=== PATIENT | female | born 1970 | race Hispanic/Latino ===

== ENCOUNTER 2018-08-10 13:45 | Emergency (ER) | payer MEDICARE ==
[2018-08-10 14:18] LABS: BILIRUBIN,URINE Negative (NEGATIVE); COLOR,URINE Yellow (YELLOW); GLUCOSE, URINE (UA) Negative (NEGATIVE); KETONES,URINE Negative (NEGATIVE); LEUKOCYTE ESTERASE ,URINE Negative (NEGATIVE); NITRATE,URINE Negative (NEGATIVE); OCCULT BLOOD,URINE Negative (NEGATIVE); PROTEIN,URINE Negative (NEGATIVE); UROBILINOGEN,URINE 0.2 mg/dL (0.2-1.0)
[2018-08-10 14:22] LABS: APPEARANCE,URINE CLEAR (CLEAR)
[2018-08-10 15:37] LABS: BASOPHILS % (AUTO) 0.5 % (0.0-5.0); EOSINOPHILS % (AUTO) 2.5 % (0.0-8.0); HEMATOCRIT 44.6 % (36-48); LYMPHOCYTES % (AUTO) 26.1 % (21.0-51.0); MEAN CORPUSCULAR HEMOGLOBIN 30.8 pg (27.0-33.0); MEAN CORPUSCULAR HGB CONC 33.3 g/dL (32.0-36.0); MEAN CORPUSCULAR VOLUME 92.4 fL (79-99); MONOCYTES % (AUTO) 7.7 % (3.0-13.0); NEUTROPHILS % (AUTO) 63.2 % (40.0-77.0); NUCLEATED RED BLOOD CELLS 0.1 % (0.0-0.19); PLATELET COUNT (AUTO) 312 K/uL (130-400); RED BLOOD CELL COUNT(AUTO) 4.82 MIL/uL (4.00-5.50); RED CELL DISTRIBUTION WIDTH 12.9 % (11.0-15.5); WHITE BLOOD COUNT (AUTO) 6.7 K/uL (4.8-10.8)
[2018-08-10 15:49] LABS: CREATININE 0.8 mg/dL (0.5-1.5); POTASSIUM 3.8 mmol/L (3.5-5.1)
[2018-08-10 15:54] LABS: BILIRUBIN,TOTAL 0.5 mg/dL (0.2-1.0); TOTAL PROTEIN, SERUM 8.7 g/dL (6.0-8.3)
[2018-08-10] MEDS ORDERED: ACETAMINOPHEN EXTRA STRENGTH 500 MG TABLET ONE (16:03)
== END 2018-08-10 17:07 | disposition home or self-care (01) ==
LOC: EDH 13:45
DX: F41.9 Anxiety disorder, unspecified (principal); F45.8 Other somatoform disorders; E78.5 Hyperlipidemia, unspecified; Z90.710 Acquired absence of both cervix and uterus
CPT/HCPCS: 36415; 80053; 81003; 85025; 93005

== ENCOUNTER → 2023-03-21 | Outpatient (CLI) | payer MEDICARE | END | disposition home or self-care (01) | LOC: SHCH 12:51 | PROVIDERS: ATTEND Internal Medicine Cardiovascular Disease | DX: I87.2 Venous insufficiency (chronic) (peripheral) (principal); I73.9 Peripheral vascular disease, unspecified | CPT/HCPCS: 93925; 93970 ==

== ENCOUNTER → 2023-07-05 | Outpatient (CLI) | payer MEDICARE ==
[2023-07-05 12:21] LABS: BASOPHILS # (AUTO) 0.05 K/uL (0.00-0.20); BASOPHILS % (AUTO) 0.8 % (0.0-5.0); EOSINOPHILS # (AUTO) 0.27 K/uL (0.00-0.70); EOSINOPHILS % (AUTO) 4.3 % (0.0-8.0); HEMATOCRIT 42.6 % (36-48); IMMATURE GRANULOCYTE ABSOLUTE 0.02 K/uL (0-1); LYMPHOCYTES # (AUTO) 2.1 K/uL (1.0-4.8); LYMPHOCYTES % (AUTO) 33.9 % (21.0-51.0); MEAN CORPUSCULAR HEMOGLOBIN 31.1 pg (27.0-33.0); MEAN CORPUSCULAR HGB CONC 32.4 g/dL (32.0-36.0); MEAN CORPUSCULAR VOLUME 95.9 fL (79-99); MONOCYTES # (AUTO) 0.6 K/uL (0.1-1.0); MONOCYTES % (AUTO) 8.8 % (3.0-13.0); NEUTROPHILS # (AUTO) 3.2 K/uL (1.8-7.7); NEUTROPHILS % (AUTO) 51.9 % (40.0-77.0); PLATELET COUNT (AUTO) 369 K/uL (130-400); RED BLOOD CELL COUNT(AUTO) 4.44 MIL/uL (4.00-5.50); RED CELL DISTRIBUTION WIDTH 12.7 % (11.0-15.5); WHITE BLOOD COUNT (AUTO) 6.2 K/uL (4.8-10.8)
[2023-07-05 12:33] LABS: CREATININE 0.7 mg/dL (0.5-1.5); POTASSIUM 4.1 mmol/L (3.5-5.1)
[2023-07-05 12:34] LABS: INR < 0.93 (0.85-1.15); PROTHROMBIN TIME 10.3 SEC (9.6-11.6)
[2023-07-05 12:35] LABS: PARTIAL THROMBOPLASTIN TIME 29.6 SEC (26.3-35.5)
== END | disposition home or self-care (01) ==
LOC: LAB 08:09
PROVIDERS: ATTEND Internal Medicine Cardiovascular Disease
DX: I87.1 Compression of vein (principal); I87.2 Venous insufficiency (chronic) (peripheral); I83.93 Asymptomatic varicose veins of bilateral lower extremities; I73.9 Peripheral vascular disease, unspecified; E78.5 Hyperlipidemia, unspecified; M06.9 Rheumatoid arthritis, unspecified; E66.9 Obesity, unspecified; Z68.32 Body mass index [BMI] 32.0-32.9, adult; M79.673 Pain in unspecified foot
CPT/HCPCS: 36415; 80048; 85025; 85610; 85730

== ENCOUNTER → 2024-06-17 | Outpatient (CLI) | payer MEDICARE | END | disposition home or self-care (01) | LOC: SHCH 10:53 | PROVIDERS: ATTEND Internal Medicine Cardiovascular Disease | DX: I87.2 Venous insufficiency (chronic) (peripheral) (principal) | CPT/HCPCS: 93970 ==

== ENCOUNTER 2025-03-01 05:22 | Emergency (ER) | payer MEDICARE ==
[~2025-03-01] VITALS: Ht 157.5 cm; Wt 79.8 kg
[2025-03-01 05:44] LABS: APPEARANCE,URINE CLEAR (CLEAR); GLUCOSE, URINE (UA) NEGATIVE (NEGATIVE); LEUKOCYTE ESTERASE ,URINE NEGATIVE Leu/uL (NEGATIVE); NITRATE,URINE NEGATIVE (NEGATIVE); OCCULT BLOOD,URINE NEGATIVE (NEGATIVE)
[2025-03-01 05:47] LABS: ADD UA MICROSCOPIC NO
--- NOTE | 2025-03-01 06:25 | ERN ---
General Chief Complaint: Headache Stated Complaint: HEADACHE Time Seen by MD: 05:48 History of Present Illness Initial Comments Mrs Panda is a 55-year-old female who comes in today with a three-week history of a headache. Patient reports that she has right-sided parietal/temporal headache the resident her neck. Patient reports that she has been taking muscle relaxers from her primary care doctor but this is not help. Patient reports that the pain has gotten so bad that she needed assistance Allergies: Coded Allergies: No Known Allergies (Unverified Allergy, Unknown, 03/01/25) Past Medical History Past Medical History: Arthritis, Diabetes-Type II, High Cholesterol Past Surgical History: Hysterectomy, Cholecystectomy, Other, Surgical History Other: HERNIA ROS Dictation Constitutional: Negative for fever,chills, and weight loss Eyes: Negative for injury, pain,redness, and discharge ENT: Positive for neck pain Cardiovascular: Negative for chest pain, palpitations, and edema Respiratory: Negative for shortness of breath, cough, and wheezing, Abdomen/GI: Negative for abdominal pain, nausea, vomiting, diarrhea, and constipation Back: Negative for injury and pain : Negative for injury, bleeding and discharge MS/Extremity: Negative for injury and deformity Skin: Negative for rash, and discoloration Neuro: Headache Psych: Negative for suicide ideation, homicidal ideation, and hallucinations Physical Exam Physical Exam Dictation General: awake, alert, NAD Head/Face: Normocephalic, atraumatic Eyes: PERRL, EOMI, vision at baseline ENT: oral cavity clear, TMs clear, no signs of infection Neck: Trachea midline, supple, no nuchal rigidity Cardiovascular: RRR, normal S1/S2, No MRGs, no JVD Respiratory: CTAB, no respiratory distress, No rales or wheezes Abdomen: Soft, non-tender, non-distended, normal bowel sounds, no guarding or rebound. Skin: Warm, dry, normal turgor, no rash MS/Extremity: Pulses equal, no cyanosis, neurovascular intact, FROM Neuro: COAx4, GCS 15, strength 5/5, CN 2-12 intact, normal cerebellar exam, normal gait, Psych: Normal behavior, mood, and affect normal Results Laboratory and Microbiology Lab and Micro Result Laboratory Tests Test 03/01/25 05:25 03/01/25 06:02 03/01/25 06:41 Urine Color LIGHT-YELLOW (YELLOW) Urine Appearance CLEAR (CLEAR) Urine pH 6.5 (5.0-8.0) Urine Specific [place] 1.017 (1.001-1.031) Urine Protein NEGATIVE mg/dL (NEGATIVE) Urine Glucose (UA) NEGATIVE mg/dL (NEGATIVE) Urine Ketones NEGATIVE mg/dL (NEGATIVE) Urine Occult Blood NEGATIVE (NEGATIVE) Urine Nitrate NEGATIVE (NEGATIVE) Urine Bilirubin NEGATIVE mg/dL (NEGATIVE) Urine Urobilinogen 0.2 mg/dL (0.2-1.0) Urine Leukocyte Esterase NEGATIVE Manny/uL Whole Blood Glucose 129 MG/DL (70-110) H White Blood Count 5.7 K/uL (4.8-10.8) Red Blood Count 4.44 MIL/uL (4.00-5.50) Hemoglobin 14.0 g/dL (12.0-16.0) Hematocrit 41.2 % (36-48) Mean Corpuscular Volume 92.8 fL (79-99) Mean Corpuscular Hemoglobin 31.5 pg (27.0-33.0) Mean Corpuscular Hemoglobin Concent 34.0 g/dL (32.0-36.0) Red Cell Distribution Width 12.4 % (11.0-15.5) Platelet Count 269 K/uL (130-400) Mean Platelet Volume 8.7 fL (7.5-10.5) Immature Granulocyte % (Auto) 0.2 % (0-1) Neutrophils (%) (Auto) 54.5 % (40.0-77.0) Lymphocytes (%) (Auto) 33.7 % (21.0-51.0) Monocytes (%) (Auto) 7.6 % (3.0-13.0) Eosinophils (%) (Auto) 3.5 % (0.0-8.0) Basophils (%) (Auto) 0.5 % (0.0-5.0) Neutrophils # (Auto) 3.1 K/uL (1.8-7.7) Lymphocytes # (Auto) 1.9 K/uL (1.0-4.8) Monocytes # (Auto) 0.4 K/uL (0.1-1.0) Eosinophils # (Auto) 0.20 K/uL (0.00-0.70) Basophils # (Auto) 0.03 K/uL (0.00-0.20) Absolute Immature Granulocyte (auto 0.01 K/uL (0-1) Nucleated Red Blood Cells 0.0 % (0.0-0.19) MDM Transitioning care to oncoming physician ED Course Orders Procedure Category Date Status Time Urinalysis Profile LAB 03/01/25 Complete 05:29 Cbc With Differential LAB 03/01/25 Complete 05:51 Ct Head/Brain W/O CT 03/01/25 Resulted Contrast 05:51 Chest 1vw RAD 03/01/25 Resulted 05:51 12 Lead Ekg Tracing- EKG 03/01/25 Logged Technical 05:51 Labetalol 20ml Vial PHA 03/01/25 Complete (Trandate 20mg Vial) 06:00 Creatine Kinase, Total LAB 03/01/25 In Process 05:51 Urinalysis Profile LAB 03/01/25 Logged 05:51 Bedside Glucose CPOE 03/01/25 Transmitted Fingerstick 05:51 Basic Metabolic Panel LAB 03/01/25 In Process 05:51 Diphenhydramine Hcl PHA 03/01/25 Complete (Benadryl Inj) 06:00 Ketorolac PHA 03/01/25 Complete Tromethamine 15mg/Ml 06:00 Prochlorperazine PHA 03/01/25 Complete 10mg/2ml Inj 06:00 Current Medications Medications (Trade) Dose Ordered Sig/Elliot Route PRN Reason Start Time Stop Time Status Last Admin Dose Admin Diphenhydramine HCl (BENAdryl INJ) 25 mg ONCE ONCE IV 03/01/25 06:00 03/01/25 06:01 DC 03/01/25 06:49 Ketorolac Tromethamine (toRADol) 15 mg ONCE ONCE IV 03/01/25 06:00 03/01/25 06:01 DC 03/01/25 06:50 Labetalol HCl (TRANdate 20MG VIAL) 20 mg ONCE ONCE IV 03/01/25 06:00 03/01/25 06:01 DC Prochlorperazine Edisylate (Compazine 10mg/ 2ml Inj) 10 mg ONCE ONCE IV 03/01/25 06:00 03/01/25 06:01 DC 03/01/25 06:50 Vital Signs Date Time Temp Pulse Resp B/P (MAP) Pulse Ox O2 Delivery O2 Flow Rate FiO2 03/01/25 06:47 61 126/74 03/01/25 06:43 61 18 126/74 98 Room Air* 0 21 03/01/25 05:50 72 18 164/83 99 Room Air* 0 03/01/25 05:24 97.2 79 16 163/89 100 Room Air DX & DISP Disposition: Other(Comment) Departure Impression: Primary Impression: Migraine Critical Time: 30 minutes Condition: Stable Referrals: ABA HERRING MD (PCP) STEPHANIA COOPER MD Mar 01, 2025 06:25
--- NOTE | 2025-03-01 06:29 | HMCIMG ---
EXAM: CR Chest, 1 View. CLINICAL HISTORY: SOB COMPARISON: None provided. FINDINGS: LUNGS: The lungs show no infiltrate or other acute finding. PLEURAL SPACES: No pleural effusion or pneumothorax. MEDIASTINUM: The cardiomediastinal silhouette is within normal limits. BONES: No aggressive appearing osseous lesion seen. IMPRESSION: No acute cardiopulmonary pathology is evident. /[place]
--- NOTE | 2025-03-01 06:32 | HMCIMG ---
EXAM: CT examination of the Brain without contrast. CLINICAL HISTORY: Headache. TECHNIQUE: Thin collimated axial CT images of the brain were obtained with sagittal and coronal reformatted images also submitted. CT scan done according to ALARA (As Low as Reasonably Achievable). CONTRAST USED: None. COMPARISON: None provided. FINDINGS: No acute intracranial abnormality is present. No acute cortical infarction, hemorrhage, mass or mass effect. No hydrocephalus or abnormal extra-axial fluid collections. The posterior fossa is unremarkable. The skull base and calvarium are intact. Moderate bilateral frontal and ethmoid sinusitis. Bilateral mastoid air cells are clear. IMPRESSION: No acute intracranial abnormality is present. Moderate bilateral frontal and ethmoid sinusitis. /[place]
[2025-03-01] MEDS: PROCHLORPERAZINE 10MG/2ML INJ IV ONE (06:50)
[2025-03-01 07:03] LABS: IMMATURE GRANULOCYTE ABSOLUTE 0.01 K/uL (0-1); NUCLEATED RED BLOOD CELLS 0.0 % (0.0-0.19); PLATELET COUNT (AUTO) 269 K/uL (130-400); RED BLOOD CELL COUNT(AUTO) 4.44 MIL/uL (4.00-5.50); RED CELL DISTRIBUTION WIDTH 12.4 % (11.0-15.5); WHITE BLOOD COUNT (AUTO) 5.7 K/uL (4.8-10.8)
[2025-03-01] MEDS ORDERED: PRED20TA3 PO (07:18)
[2025-03-01] MEDS ORDERED: DOXY100C5 PO (07:18)
--- NOTE | 2025-03-01 07:18 | ERN ---
ED Note History of Present Illness Stated Complaint: HEADACHE Chief Complaint: Headache Time Seen by MD: 07:12 Dictation: Patient handed off at shift change right-sided headache on and off worse this morning seen by night doc CT and labs are pending handed off at shift change. Allergies: Coded Allergies: No Known Allergies (Unverified Allergy, Unknown, 03/01/25) Past Medical History Past Medical History: Arthritis, Diabetes-Type II, High Cholesterol Surgical History: Hysterectomy, Cholecystectomy, Other, Surgical History Other: HERNIA Review of System Dictation Constitutional: Negative for fever,chills, and weight loss Eyes: Per HPI ENT: Negative for injury,pain or swelling Cardiovascular: Negative for chest pain, palpitations, and edema Respiratory: Negative for shortness of breath, cough, and wheezing, Abdomen/GI: Negative for abdominal pain, nausea, vomiting, diarrhea, and constipation Back: Negative for injury and pain : Negative for injury, bleeding and discharge MS/Extremity: Negative for injury and deformity Skin: Negative for rash, and discoloration Neuro: Per HPI Initial Vital Sign VS Vital Signs Date Time Temp Pulse Resp B/P (MAP) Pulse Ox O2 Delivery O2 Flow Rate FiO2 03/01/25 05:24 97.2 79 16 163/89 100 Room Air 03/01/25 05:50 0 21 Physical Exam Dictation General: awake, alert, NAD Head/Face: Normocephalic, atraumatic Eyes: PERRL, EOMI, vision at baseline ENT: oral cavity clear, TMs clear, no signs of infection Neck: Trachea midline, supple, no nuchal rigidity Cardiovascular: RRR, normal S1/S2, No MRGs, no JVD Respiratory: CTAB, no respiratory distress, No rales or wheezes Abdomen: Soft, non-tender, non-distended, normal bowel sounds, no guarding or rebound. Skin: Warm, dry, normal turgor, no rash MS/Extremity: Pulses equal, no cyanosis, neurovascular intact, FROM Neuro: COAx4, GCS 15, strength 5/5, CN 2-12 intact, normal cerebellar exam, normal gait, Psych: Normal behavior, mood, and affect normal Results (Laboratory/Radiology) Laboratory/Radiology Laboratory Tests Test 03/01/25 05:25 03/01/25 06:02 03/01/25 06:41 Urine Color LIGHT-YELLOW (YELLOW) Urine Appearance CLEAR (CLEAR) Urine pH 6.5 (5.0-8.0) Urine Specific [place] 1.017 (1.001-1.031) Urine Protein NEGATIVE mg/dL (NEGATIVE) Urine Glucose (UA) NEGATIVE mg/dL (NEGATIVE) Urine Ketones NEGATIVE mg/dL (NEGATIVE) Urine Occult Blood NEGATIVE (NEGATIVE) Urine Nitrate NEGATIVE (NEGATIVE) Urine Bilirubin NEGATIVE mg/dL (NEGATIVE) Urine Urobilinogen 0.2 mg/dL (0.2-1.0) Urine Leukocyte Esterase NEGATIVE Manny/uL Whole Blood Glucose 129 MG/DL (70-110) H White Blood Count 5.7 K/uL (4.8-10.8) Red Blood Count 4.44 MIL/uL (4.00-5.50) Hemoglobin 14.0 g/dL (12.0-16.0) Hematocrit 41.2 % (36-48) Mean Corpuscular Volume 92.8 fL (79-99) Mean Corpuscular Hemoglobin 31.5 pg (27.0-33.0) Mean Corpuscular Hemoglobin Concent 34.0 g/dL (32.0-36.0) Red Cell Distribution Width 12.4 % (11.0-15.5) Platelet Count 269 K/uL (130-400) Mean Platelet Volume 8.7 fL (7.5-10.5) Immature Granulocyte % (Auto) 0.2 % (0-1) Neutrophils (%) (Auto) 54.5 % (40.0-77.0) Lymphocytes (%) (Auto) 33.7 % (21.0-51.0) Monocytes (%) (Auto) 7.6 % (3.0-13.0) Eosinophils (%) (Auto) 3.5 % (0.0-8.0) Basophils (%) (Auto) 0.5 % (0.0-5.0) Neutrophils # (Auto) 3.1 K/uL (1.8-7.7) Lymphocytes # (Auto) 1.9 K/uL (1.0-4.8) Monocytes # (Auto) 0.4 K/uL (0.1-1.0) Eosinophils # (Auto) 0.20 K/uL (0.00-0.70) Basophils # (Auto) 0.03 K/uL (0.00-0.20) Absolute Immature Granulocyte (auto 0.01 K/uL (0-1) Nucleated Red Blood Cells 0.0 % (0.0-0.19) Labs Reviewed?: Yes ED Course ED Course Orders Procedure Category Date Status Time Urinalysis Profile LAB 03/01/25 Complete 05:29 Cbc With Differential LAB 03/01/25 Complete 05:51 Ct Head/Brain W/O CT 03/01/25 Resulted Contrast 05:51 Chest 1vw RAD 03/01/25 Resulted 05:51 12 Lead Ekg Tracing- EKG 03/01/25 Logged Technical 05:51 Labetalol 20ml Vial PHA 03/01/25 Complete (Trandate 20mg Vial) 06:00 Creatine Kinase, Total LAB 03/01/25 In Process 05:51 Urinalysis Profile LAB 03/01/25 Logged 05:51 Bedside Glucose CPOE 03/01/25 Transmitted Fingerstick 05:51 Basic Metabolic Panel LAB 03/01/25 In Process 05:51 Diphenhydramine Hcl PHA 03/01/25 Complete (Benadryl Inj) 06:00 Ketorolac PHA 03/01/25 Complete Tromethamine 15mg/Ml 06:00 Prochlorperazine PHA 03/01/25 Complete 10mg/2ml Inj 06:00 Current Medications Medications (Trade) Dose Ordered Sig/Elliot Route PRN Reason Start Time Stop Time Status Last Admin Dose Admin Diphenhydramine HCl (BENAdryl INJ) 25 mg ONCE ONCE IV 03/01/25 06:00 03/01/25 06:01 DC 03/01/25 06:49 Ketorolac Tromethamine (toRADol) 15 mg ONCE ONCE IV 03/01/25 06:00 03/01/25 06:01 DC 03/01/25 06:50 Labetalol HCl (TRANdate 20MG VIAL) 20 mg ONCE ONCE IV 03/01/25 06:00 03/01/25 06:01 DC Prochlorperazine Edisylate (Compazine 10mg/ 2ml Inj) 10 mg ONCE ONCE IV 03/01/25 06:00 03/01/25 06:01 DC 03/01/25 06:50 Vital Signs Date Time Temp Pulse Resp B/P (MAP) Pulse Ox O2 Delivery O2 Flow Rate FiO2 03/01/25 06:47 61 126/74 03/01/25 06:43 61 18 126/74 98 Room Air* 0 03/01/25 05:50 72 18 164/83 99 Room Air* 0 21 03/01/25 05:24 97.2 79 16 163/89 100 Room Air Medical Decision Making MDM MDM: Differential diagnosis: Rationale: Tests considered and ordered secondary to shared decision making include: Previous outside records reviewed: Old ER visits. Risk of complication and/or morbidity or mortality of patient management: None Medications-Per medication reconciliation Need for hospitalization: Patient does not meet criteria for hospitalization. Need for emergency major/minor surgery: No There are no social concerns with this patient. Prescription drug management Prescriptions will include symptomatic care Patient's prior external medical records from other ER visits were reviewed by me as indicated. Prior testing and results from previous visits were reviewed. Prior tests were taken into account with medical decision making and resource utilization, independent historian/historians were used to obtain complete medical history. I independently interpreted the test that were performed, results were reviewed by me and considered findings on radiology if ordered. Medical management and examination interpretation discussions were had by me with other qualified healthcare professionals as indicated for the patient's care. Hemoglobin above 10 CT of the head negative repeat neuro exam is stable stable for discharge no CT angios and indicated DX & DISP Disposition: Discharge Departure Impression: Primary Impression: Migraine Additional Impression: Frontal sinusitis Condition: Stable Scripts Doxycycline Hyclate (Doxycycline Hyclate) 100 Mg Capsule 1 CAP PO BID for 7 Days, #14 CAP 0 Refills Prov: GABRIELLE ROSS MD 03/01/25 Prednisone (Prednisone) 20 Mg Tablet 20 MG PO DAILY for 5 Days, #5 TAB Prov: GABRIELLE ROSS MD 03/01/25 Referrals: ABA HERRING MD (PCP) GABRIELLE ROSS MD Mar 01, 2025 07:18
[2025-03-01 07:20] LABS: CREATINE KINASE, TOTAL 41.0 U/L (21-232); CREATININE 0.8 mg/dL (0.5-1.0); GLOMERULAR FILTR. RATE CALC 86.0 mL/min (>90); GLUCOSE,RANDOM 117.0 mg/dL (70-105); SODIUM SERUM 139.0 mmol/L (136-145); UREA NITROGEN, BLOOD 11.0 mg/dL (7-18)
[2025-03-01 07:26] VITALS: BP 123/71; PULSE 57; RESP 18; TEMP 98.2; O2SAT 95
--- NOTE | 2025-03-01 07:40 | EKG ---
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
== END 2025-03-01 07:36 | disposition home or self-care (01) ==
LOC: EDH 05:22
DX: G43.909 Migraine, unspecified, not intractable, without status migrainosus (principal); J32.1 Chronic frontal sinusitis; E11.9 Type 2 diabetes mellitus without complications; E78.00 Pure hypercholesterolemia, unspecified; M19.90 Unspecified osteoarthritis, unspecified site; Z90.49 Acquired absence of other specified parts of digestive tract; Z90.710 Acquired absence of both cervix and uterus
CPT/HCPCS: 99285; 96374; 70450; 96375; 71045; 82550; 80048; 85025; 82948; 81003; 36415; 93005; J1885; J1200; J0780